=== PATIENT | male | born 1985 | race African-American/Black ===

== ENCOUNTER 2017-12-24 16:19 | Emergency (ER) | payer SELFPAY ==
[2017-12-24] MEDS: LIDOCAINE 2% MDV 20 ML VIAL SC (16:30)
[2017-12-24] MEDS: ONDANSETRON 4MG/2ML VIAL (J2405) IV (16:45)
[2017-12-24] MEDS: MORPHINE 4 MG/ML 1ML VIAL/SYRINGE (J2270) IV ×2 (16:45→18:30)
[2017-12-24] MEDS ORDERED: NEOSPORIN OINT 0.9 GM PKT (FLOOR STOCK) As Ordered (18:29)
[2017-12-24] MEDS: NORCO 5/325MG TABLET (BULK FOR ED) PO (18:30)
== END 2017-12-24 19:18 | disposition home or self-care (01) ==
LOC: M ED 16:19
DX: S62.631B Displaced fracture of distal phalanx of left index finger, initial encounter for open fracture (principal); W23.0XXA Caught, crushed, jammed, or pinched between moving objects, initial encounter; Y92.9 Unspecified place or not applicable; Y93.9 Activity, unspecified; Y99.0 Civilian activity done for income or pay; Z72.0 Tobacco use
CPT/HCPCS: J2270